=== PATIENT | female | born 1955 | race Caucasian/White ===

== ENCOUNTER 2016-09-16 07:32 | Emergency (ER) | payer OTHER ==
[~2016-09-16] VITALS: Ht 160 cm; Wt 88.9 kg
[~2016-09-16 07:32] MED LIST: ATENOLOL50 MG PO; AZELASTINE205.5 MCG/ BOTH NARES; BUPROPION HCL150 M2 PO; CLARITIN10 M3 PO; DAILY VALUE1 EACH PO; FLONASE16 G1 BOTH NARES; IRON; LAMICTAL200 MG PO; LEXAPRO5 MG PO; MULTIVITAMINS; PREVACID15 MG PO; TRILIPIX135 MG PO; WELLBUTRIN SR150 MG PO; ZANTAC150 MG PO
[2016-09-16 09:10] LABS: EOSINOPHIL (%) 0.6 % (0-5); EOSINOPHIL COUNT 0.1 K/uL (0-0.3); HEMATOCRIT 39.9 % (36.0-46.0); IMMATURE GRANULOCYTE (%) 0.3 % (0.0-0.7); INSTRUMENT ABS NEUTROPHIL CT 6.1 K/uL; LYMPHOCYTE COUNT 2.1 K/uL (1.0-2.8); MCH 29.7 PG (29.0-34.0); MCHC 32.3 G/DL (30.0-36.0); MCV 91.9 FL (83-99); MEAN PLAT.VOLUME 10.4 uM^3 (9.5-12.4); MONOCYTE COUNT 0.9 K/uL (0-0.8); NEUTROPHIL (%) 65.9 % (45-76); NEUTROPHIL COUNT 6.1 K/uL (1.8-6.4); PLATELET COUNT 253 K/uL (156-360); RBC DIS.WIDTH-CV 12.6 % (11.8-14.6); RBC DIS.WIDTH-SD 42.5 % (39-53); RED BLOOD COUNT 4.34 M/uL (3.80-5.20); WHITE BLOOD COUNT 9.3 K/uL (4.1-10.2)
[2016-09-16 09:39] LABS: ANION GAP 8 MEQ/L (2-14); CHLORIDE 103 MEQ/L (99-109); POTASSIUM 4.3 MEQ/L (3.7-5.4); SAMPLE HEMOLYSIS CHECK 0; SAMPLE ICTERIC CHECK 0; SAMPLE LIPEMIA CHECK 0; SODIUM 139 MEQ/L (136-147)
[2016-09-16 09:45] LABS: GFR ESTIMATE (CALCULATED) > 59 mL/min/; GLUCOSE 105 mg/dL (70-99); UREA NITROGEN (BUN) 14 mg/dL (9-23)
[2016-09-16 09:56] LABS: TROP-I INTERPRETATION NEGATIVE; TROPONIN-I < 0.01 ng/mL (0.0-0.30)
[2016-09-16 12:49] LABS: TROP-I INTERPRETATION NEGATIVE; TROPONIN-I < 0.01 ng/mL (0.0-0.30)
[2016-09-16] MEDS ORDERED: MOTRIN600 MG PO (13:35)
[2016-09-16 14:20] VITALS: BP 124/57
== END 2016-09-16 14:21 | disposition home or self-care (01) ==
LOC: EME 07:32
PROVIDERS: Emergency Medicine
DX: R09.1 Pleurisy (principal); I10 Essential (primary) hypertension; E78.5 Hyperlipidemia, unspecified; F31.9 Bipolar disorder, unspecified
CPT/HCPCS: 71020; 80048; 83880; 84484; 85025; 93005; 99281; 99284